=== PATIENT | female | born 1940 | race Caucasian/White ===

== ENCOUNTER 2023-09-11 23:32 | Observation (INO) | payer MEDICARE, BC, SELFPAY ==
[2023-09-11 23:40] VITALS: BP 145/63; PULSE 77; RESP 16; TEMP 36.6; O2SAT 97; BMI 24.8
--- NOTE | 2023-09-12 00:10 | ED_ITS ---
HPI - General Adult General Chief complaint: Abdominal Pain Stated complaint: abdominal pain Time Seen by Provider: 09/11/23 23:50 Source: patient and family Mode of arrival: ambulatory Limitations: no limitations History of Present Illness HPI narrative: Female presents to the emergency department for evaluation of abdominal pain. Pain is located in the periumbilical and epigastric region it started about 2 hours prior to arrival. No fever, no trauma or injury. No prior history of similar symptoms. Pain is constant. Sharp in nature. Does not seem to radiate. Not associated with nausea, diarrhea. She is also having some urinary hesitancy and urgency. No dysuria or hematuria. No bloody stools. Has not tried taking any medications or any other interventions to help with her symptoms. Has not noticed any exacerbating factors. No prior history of kidney stones or abdominal surgeries. No prior obstructions. No heavy alcohol use, no history of pancreatitis. No heartburn like symptoms or right upper quadrant tenderness. Past medical history notable for COPD, hypertension. Home meds are trazodone, amlodipine, losartan, hydrochlorothiazide, Singulair and fluticasone/albuterol inhaler. Daughters accompany her today. ROS is notable for the GI symptoms as above only, otherwise denies times 12 systems With the exception of some ongoing right shoulder arthritic issues. Related Data Home Medications Medication Instructions Recorded Confirmed albuterol sulfate 90 mcg/actuation inhalation 09/11/23 aerosol inhaler amlodipine 5 mg tablet 5 mg PO DAILY 09/11/23 09/11/23 fluticasone propionate 50 intranasal 09/11/23 mcg/actuation nasal spray,suspension hydrochlorothiazide 25 mg tablet mg PO 09/11/23 losartan 100 mg tablet 100 mg PO DAILY 09/11/23 09/11/23 montelukast 10 mg tablet 10 mg PO DAILY 09/11/23 09/11/23 rosuvastatin 10 mg tablet 10 mg PO QPM 09/11/23 09/11/23 trazodone 50 mg tablet mg PO 09/11/23 Allergies Allergy/AdvReac Type Severity Reaction Status Date / Time No Known Drug Allergies Allergy Verified 09/11/23 23:43 [facility] [place] Medical History Depression ?F32.A - Depression, unspecified (ICD-10) Prediabetes ?R73.03 - Prediabetes (ICD-10) COPD (chronic obstructive pulmonary disease) ?J44.9 - Chronic obstructive pulmonary disease, unspecified (ICD-10) HTN (hypertension) ?I10 - Essential (primary) hypertension (ICD-10) Surgical History H/O tubal ligation ?Z98.51 - Tubal ligation status (ICD-10) Hx of tonsillectomy ?Z90.89 - Acquired absence of other organs (ICD-10) S/P hip replacement ?Z96.649 - Presence of unspecified artificial hip joint (ICD-10) Social History How often do you have a drink containing alcohol: never AUDIT-C Alcohol total score: 0 Non-prescribed substance use: denies use Exam Const: Vital Signs, click to edit/add: Vital Signs - 24 hr 09/11/23 23:40 09/12/23 01:08 Temperature 97.8 F Pulse Rate [Pulse Oximeter] 77 79 Respiratory Rate 16 16 Blood Pressure [Le ft Upper Arm] 145/63 H 172/78 H Pulse Oximetry 97 98 Oxygen Delivery Me thod Room Air Documenting provider has reviewed patient's vital signs: yes Common normals: alert General appearance: well kempt Other: seems mildly distressed Due to pain but friendly and cooperative. HENMT: Common normals: normocephalic and moist oral mucous membranes Head and scalp: normocephalic Eye: Common normals: conjunctivae normal General eye: normal appearance of both eyes Conjunctiva: conjunctiva(e) normal Neck & C-Spine: Common normals: full ROM and no lymphadenopathy Resp: Common normals: normal respiratory effort, no use of accessory muscles and clear to auscultation bilaterally Effort & inspection: able to speak in complete sentences Auscultation: clear to auscultation bilaterally Cardio: Common normals: regular rate, regular rhythm, S1 normal heart sound, S2 normal heart sound and no murmurs Rate: regular rate Rhythm: regular rhythm Heart sounds: S1 normal and S2 normal GI: Other: Ventral hernia noted, she does not let me examine this well. Bowel sounds do sound normoactive throughout. She is exquisitely tender in the epigastrium and mid abdomen area. Less so any other areas. Certainly no rebound tenderness but there is a moderate amount of guarding in the mid abdomen. Other than what appears to be a ventral hernia, no other obvious masses. She really does resist exam which makes interpretation difficult. Liver and spleen do not seem enlarged. : Common normals: no CVA tenderness Bladder/kidney exam: no CVA tenderness Back & Pelvis: Common normals: no CVA tenderness Thoracic spine/upper back: normal to inspection Extremity: Common normals: normal capillary refill and no pedal edema Neuro: Sensorium/orientation: alert Speech: speech normal Motor exam: no movement abnormalities noted Psych: Appearance: well kempt Attitude: engaged Insight: insight good Judgement: judgment good Skin: Common normals: no rashes or lesions noted General skin exam: no rashes or lesions noted Course Course ED Course: Mid abdominal pain of insidious onset. Concerning for ischemic bowel, incarcerated hernia, volvulus, kidney stone. Other differential diagnosis includes gastroenteritis, bleeding ulcer, urinary tract infection, colitis, bowel obstruction, ovarian torsion, among others. Patient requesting pain medicine, will be given Quarter mg of Dilaudid, 4 mg of Zofran and start some lactated Ringer's. Basic labs including lipase, CRP, metabolic panel, CBC etc.. based on urinalysis and labs, would then recommend CT either with or without contrast. Suspect with contrast. Reevaluation(s) Time of Reevaluation #1: 01:40 Reevaluation #1: Patient was given other 0.5 mg of Dilaudid about 5 minutes ago after we discussed CT findings and lab findings. I will add a medicine to become therapeutic and then performed reduction. Procedure: Incarcerated hernia reduction. Verbal consent obtained. Mid abdomen was massaged gently to let the patient get use to touch chin to soften the abdominal muscles. Once I was sure that her pain medication had become therapeutic, gentle downward pressure was applied over the supraumbilical area of swelling. The hernia reduced easily. Pressure was held for about 1 minute and then released. She had quite a bit of relief of her pain right away. Repeat examination 2 minutes later showed no further evidence of hernia. I spoke with kevin Chapa from the surgical team. I am recommending observation admission. She will consult on patient later this morning, will admit to the hospitalist team. Time of Reevaluation #2: 01:57 Reevaluation #2: Spoke with hospitalist on-call they have accepted patient in admission for observation. Diagnosis small-bowel obstruction secondary to incarcerated supra umbilical hernia, status post uncomplicated reduction. Vital Signs Vital signs: Initial Vital Signs Temperature 97.8 F 09/11/23 23:40 Temperature Source Temporal Artery Scan 09/11/23 23:40 Pulse Rate 77 09/11/23 23:40 Respiratory Rate 16 09/11/23 23:40 Blood Pressure 145/63 H 09/11/23 23:40 Blood Pressure Mean 90 09/11/23 23:40 Blood Pressure Position Sitting 09/11/23 23:40 Pulse Oximetry 97 09/11/23 23:40 Oxygen Delivery Method Room Air 09/11/23 23:40 Vital Signs Temperature 97.8 F 09/11/23 23:40 Pulse Rate 77 09/11/23 23:40 Respiratory Rate 16 09/11/23 23:40 Blood Pressure 145/63 H 09/11/23 23:40 Pulse Oximetry 97 09/11/23 23:40 Oxygen Delivery Method Room Air 09/11/23 23:40 Temperature 97.8 F 09/11/23 23:40 Pulse Rate 79 09/12/23 01:08 Respiratory Rate 16 09/12/23 01:08 Blood Pressure 172/78 H 09/12/23 01:08 Pulse Oximetry 98 09/12/23 01:08 Oxygen Delivery Method Room Air 09/11/23 23:40 Medications Administered Medications: Generic Name Dose Route Start Last Admin Trade Name Freq PRN Reason Stop Dose Admin Lactated Ringer's 1,000 mls @ 500 mls/hr 09/12/23 00:07 09/12/23 00:13 Lactated Ringers 1000 Ml IV 09/12/23 02:06 500 mls/hr .Q2H BARBARA Administration Discontinued Medications Generic Name Dose Route Start Last Admin Trade Name Freq PRN Reason Stop Dose Admin Hydromorphone HCl 0.25 mg 09/12/23 00:06 09/12/23 00:15 Hydromorphone 0.5 Mg/0.5 Ml Inj IVP 09/12/23 00:07 0.25 mg ONCE ONE Administration Hydromorphone HCl 0.5 mg 09/12/23 01:27 09/12/23 01:28 Hydromorphone 0.5 Mg/0.5 Ml Inj IVP 09/12/23 01:28 0.5 mg ONCE ONE Administration Ondansetron HCl 4 mg 09/12/23 00:06 09/12/23 00:15 Ondansetron 2 Mg/Ml Inj IVP 09/12/23 00:07 4 mg ONCE ONE Administration Medical Decision Making Lab Data Lab results reviewed: Yes I reviewed the patient's lab results Lab results narrative: Labs reassuring. Labs: Lab Results 09/12/23 09/12/23 Range/Units 00:00 00:47 WBC 5.90 (4.50-11.00) K/uL RBC 4.01 (4.00-5.20) m/uL Hgb 12.8 (12.0-16.0) gm/dL Hct 39.7 (33.0-51.0) % MCV 99 (80-100) fL MCH 32 (26-34) pg MCHC 32 (32-36) gm/dL RDW Coeff of Ti 13.1 (11.5-15.5) % Plt Count 294 (140-440) K/uL Neut % (Auto) 51.0 (42.0-72.0) % Lymph % (Auto) 30.8 (20-44) % [place] % (Auto) 9.2 (0.0-11.0) % Eos % (Auto) 8.1 H (0.0-7.0) % Baso % (Auto) 0.7 (0.0-3.0) % Neut # (Auto) 3.01 (1.7-7.0) K/uL Lymph # (Auto) 1.82 (0.90-2.90) K/uL [place] # (Auto) 0.50 (0.00-0.90) K/UL Eos # (Auto) 0.50 (0.00-0.50) K/uL Baso # (Auto) 0.04 (0.00-0.30) K/uL Abs Immat Gran (auto) 0.01 (0.00-0.30) K/uL Imm/Tot Granulo (auto) 0.2 % Sodium 141 (135-149) mmol/L Potassium 3.8 (3.6-5.1) mmol/L Chloride 104 (96-114) mmol/L Carbon Dioxide 28 (20-32) mmol/L Anion Gap 9 (7-15) mEq/L BUN 22 (7-30) mg/dL Creatinine 0.8 (0.5-1.5) mg/dL Estimated Creat Clear 35.26 Estimated GFR 73 ml/min Glucose 116 H (60-115) mg/dL Lactate 0.9 (0.5-1.9) mmol/L Calcium 9.8 (8.4-10.6) mg/dL Total Bilirubin 0.4 (0.1-1.5) mg/dL AST 23 (12-35) U/L ALT 12 (4-35) U/L Alkaline Phosphatase 81 (40-150) U/L C-Reactive Protein < 0.5 L (0.5-1.0) mg/dL Total Protein 8.1 (6.0-8.3) g/dL Albumin 4.8 (3.3-5.0) g/dL Lipase 198 (23-300) U/L Urine Color Yellow (Yellow) Urine Appearance Clear (Clear) Urine pH 6.5 (5.0-8.5) Ur Specific [place] 1.020 (1.000-1.030) Urine Protein Negative (Negative) Urine Glucose (UA) Negative (Negative) Urine Ketones Negative (Negative) Urine Blood Trace-lysed A (Negative) Urine Nitrite Negative (Negative) Urine Bilirubin Negative (Negative) Urine Urobilinogen 0.2 (0.2-1.0) Ur Leukocyte Esterase Negative (Negative) Urine RBC 0-2 (0-2) Urine WBC 0-2 (0-5) Ur Squamous Epith Cells Few (None-Few) Urine Bacteria None (None) Imaging Data CT scan - abdomen: Attestation: I have reviewed the pertinent imaging results. My impression: Ventral hernia. Bowel incarceration Radiologist's impression: Impression: 1. There is a supraumbilical hernia containing a short segment of small bowel with the hernia sac contents demonstrating fat stranding and small volume fluid. The proximal small bowel is prominent with air-fluid levels. Findings are concerning for early or partial small bowel obstruction secondary to hernia incarceration. 2. Question fluid in the endometrial canal. Recommend nonemergent outpatient pelvic ultrasound for further evaluation. Discharge Plan Discharge Clinical Impression: Complete small bowel obstruction, Incarcerated ventral hernia Patient Disposition: Admitted As Observation
[2023-09-12] MEDS: LACTATED RINGERS 1000 ML 1,000 ML 500 ML IV (00:13)
[2023-09-12 00:15] LABS: Lactate* 0.9 mmol/L (0.5-1.9)
[2023-09-12] MEDS: HYDROmorphone 0.5 mg/0.5 ml inj 0.25 MG IVP (00:15)
[2023-09-12] MEDS: ONDANSETRON 2 MG/ML inj 4 MG IVP (00:15)
[2023-09-12 00:17] LABS: Basophils Absolute Auto 0.04 K/uL (0.00-0.30); Basophils Percent Auto 0.7 % (0.0-3.0); Eosinophils Percent Auto 8.1 % (0.0-7.0); Hematocrit 39.7 % (33.0-51.0); Hemoglobin* 12.8 gm/dL (12.0-16.0); Immature Granulocytes Abs Auto 0.01 K/uL (0.00-0.30); Immature Granulocytes Pct Auto 0.2 %; Lymphocytes Absolute Auto 1.82 K/uL (0.90-2.90); Lymphocytes Percent Auto 30.8 % (20-44); Mean Corpuscular HGB Conc 32 gm/dL (32-36); Mean Corpuscular Hemoglobin 32 pg (26-34); Mean Corpuscular Volume 99 fL (80-100); Monocytes Percent Auto 9.2 % (0.0-11.0); Neutrophils Absolute Auto 3.01 K/uL (1.7-7.0); Platelet Count* 294 K/uL (140-440); RDW Coefficient of Variation % 13.1 % (11.5-15.5); Red Blood Count 4.01 m/uL (4.00-5.20)
--- NOTE | 2023-09-12 00:17 | CT_ITS ---
Patient: DIRK FLORES Facility:?[facility] Patient ID:?[id number] Site Patient ID:?[id number]. Site :?[id number] Study:?CT-Abdomen/Pelvis with 69cc [id number] contrast-09/12/2023 1:13:56 AM Ordering Physician:Tj Cade Final Report: Indication: Sudden abdominal pain, anterior Technique: CT through the abdomen and pelvis following 69 mL Isovue 370 IV contrast Comparison: None Findings: Lower chest: Mild bibasilar atelectasis and/or scarring. Hepatobiliary: No significant parenchymal abnormality is appreciated. Spleen: Unremarkable. Pancreas: No acute abnormality appreciated. Adrenal glands: No acute abnormality appreciated. Kidneys: No significant parenchymal abnormality appreciated. No visualized calculi. No hydronephrosis. Bowel: No overt obstruction. There is slight prominence of multiple loops of small bowel measuring up to 2.3 centimeters containing moderate volume of air. No focal perienteric or pericolonic stranding is appreciated. The appendix is visualized and appears unremarkable. Vascular: No acute abnormality appreciated. Calcified atherosclerosis. Lymph nodes: No gross lymphadenopathy. Peritoneum: No free air. No free fluid. : Largely obscured by streak artifact, no gross acute abnormality appreciated. Question endometrial fluid. Soft tissues: There is a supraumbilical hernia with a 1.0 centimeter neck containing a loop of small bowel. There is slight stranding and fluid within the hernia sac. Bones: No acute fracture. No lytic or blastic lesion. Degenerative changes of the spine and pelvis. Bilateral hip replacements. Impression: 1. There is a supraumbilical hernia containing a short segment of small bowel with the hernia sac contents demonstrating fat stranding and small volume fluid. The proximal small bowel is prominent with air-fluid levels. Findings are concerning for early or partial small bowel obstruction secondary to hernia incarceration. 2. Question fluid in the endometrial canal. Recommend nonemergent outpatient pelvic ultrasound for further evaluation. Please note that all CT scans at this facility use dose modulation, iterative reconstruction, and/or weight-based dosing when appropriate to reduce radiation dose to as low as reasonably achievable. Dictated by Manpreet Knight MD @ 09/12/2023 1:18:57 AM Signed by:?Manpreet Knight MD @09/12/2023 1:18:57 AM (Electronic Signature)
[2023-09-12 00:19] LABS: Slide Review Reflex No
[2023-09-12 00:28] LABS: Albumin* 4.8 g/dL (3.3-5.0); Chloride* 104 mmol/L (96-114); Potassium* 3.8 mmol/L (3.6-5.1); Sodium* 141 mmol/L (135-149)
[2023-09-12 00:30] LABS: Bilirubin Total* 0.4 mg/dL (0.1-1.5); Creatinine* 0.8 mg/dL (0.5-1.5); Est. Creatinine Clearance* 35.26; Estimated Glomerular Filt Rate 73 ml/min
[2023-09-12 00:31] LABS: Alanine Aminotransferase* 12 U/L (4-35); Alkaline Phosphatase* 81 U/L (40-150); Anion Gap 9 mEq/L (7-15); Aspartate Amino Transferase* 23 U/L (12-35); Blood Urea Nitrogen* 22 mg/dL (7-30); Carbon Dioxide* 28 mmol/L (20-32); Glucose* 116 mg/dL (60-115); Lipase* 198 U/L (23-300); Total Protein* 8.1 g/dL (6.0-8.3)
[2023-09-12 00:32] VITALS: BP 153/78; PULSE 72; RESP 16; O2SAT 96
[2023-09-12 00:32] LABS: Calcium* 9.8 mg/dL (8.4-10.6)
[2023-09-12 00:34] LABS: C Reactive Protein* < 0.5 mg/dL (0.5-1.0)
[2023-09-12 00:50] LABS: Appearance Urine Clear (Clear); Bilirubin Urine Negative (Negative); Blood Urine Trace-lysed (Negative); Color Urine Yellow (Yellow); Glucose Urine Negative (Negative); Ketones Urine Negative (Negative); Leukocyte Esterase Urine Negative (Negative); Nitrite Urine Negative (Negative); Protein Urine Negative (Negative); Urobilinogen Urine 0.2 (0.2-1.0); pH Urine 6.5 (5.0-8.5)
[2023-09-12 01:01] LABS: RBC Urine 0-2 (0-2); Squamous Epithelial Cell Urine Few (None-Few); WBC Urine 0-2 (0-5)
[2023-09-12 01:04] VITALS: BP 172/78; PULSE 84; RESP 16; O2SAT 98
[2023-09-12 01:08] VITALS: BP 172/78; PULSE 79; RESP 16; O2SAT 98
[2023-09-12] MEDS: HYDROmorphone 0.5 mg/0.5 ml inj IVP (01:28)
[2023-09-12 01:32] VITALS: BP 154/74; PULSE 78; RESP 16; O2SAT 94
[2023-09-12 02:02] VITALS: BP 140/70; PULSE 74; RESP 16; O2SAT 95
[2023-09-12 02:45] VITALS: BP 153/87; PULSE 88; RESP 20; TEMP 36.4; O2SAT 96; BMI 26.9
--- NOTE | 2023-09-12 03:12 | W.PM.TELEH&P ---
Telehealth- H&P: HPI History of Present Illness Date Seen: 09/12/23 Chief complaint: abdominal pain Narrative: Viky Siu is seen as an Interactive Telehealth visit. Viky Siu is a 83 year old male who is seen in her hospital room at [facility]. She has been admitted through the emergency room. She tells me this evening she had a sudden onset of severe supraumbilical abdominal pain. It was to the point she could not do anything she called her daughters and was brought into the emergency room. She tells me she has had similar pain to this on and off over the last couple of months. But this was the worst. No fevers no chills no nausea no vomiting. But the pain was quite intense she was evaluated in the emergency room she was found to have an incarcerated hernia on CT scan with what appears to be bowel obstruction. This was reduced after pain medications by the emergency room physician. Viky tells me that her abdominal pain does not seem to be significantly better but is not completely resolved. She does have a cough but tells me this is not new and has not changed. Otherwise she does not have any other complaints of. Review of Systems Narrative: A complete review of systems was performed positive pertinent and negatives in the history of present illness. [facility] Medical History Depression ?F32.A - Depression, unspecified (ICD-10) Prediabetes ?R73.03 - Prediabetes (ICD-10) COPD (chronic obstructive pulmonary disease) ?J44.9 - Chronic obstructive pulmonary disease, unspecified (ICD-10) HTN (hypertension) ?I10 - Essential (primary) hypertension (ICD-10) Surgical History H/O tubal ligation ?Z98.51 - Tubal ligation status (ICD-10) Hx of tonsillectomy ?Z90.89 - Acquired absence of other organs (ICD-10) S/P hip replacement ?Z96.649 - Presence of unspecified artificial hip joint (ICD-10) Social History How often do you have a drink containing alcohol: never AUDIT-C Alcohol total score: 0 Non-prescribed substance use: denies use Meds Home Medications and Allergies Home Medications Medication Instructions Recorded Confirmed Type albuterol sulfate 90 mcg/actuation inhalation 09/11/23 History aerosol inhaler amlodipine 5 mg tablet 5 mg PO DAILY 09/11/23 09/11/23 History fluticasone propionate 50 intranasal 09/11/23 History mcg/actuation nasal spray,suspension hydrochlorothiazide 25 mg tablet mg PO 09/11/23 History losartan 100 mg tablet 100 mg PO DAILY 09/11/23 09/11/23 History montelukast 10 mg tablet 10 mg PO DAILY 09/11/23 09/11/23 History rosuvastatin 10 mg tablet 10 mg PO QPM 09/11/23 09/11/23 History trazodone 50 mg tablet mg PO 09/11/23 History Allergies Allergy/AdvReac Type Severity Reaction Status Date / Time No Known Drug Allergies Allergy Verified 09/11/23 23:43 Exam Narrative Exam Narrative: Physical Exam GENERAL: ?vital signs reviewed, well developed and nourished, in no distress HEENT: pupils are equal round and reactive to light, extraocular movements are grossly within normal limits and oral mucosa is moist. NECK: Supple without lymphadenopathy or thyromegaly according to nursing staff examination observation HEART: Regular rate and rhythm without any rubs, murmurs, or gallops. LUNGS: Clear to auscultation bilaterally with good air movement throughout patient does have expiratory wheezes throughout her lungs ABDOMEN: Observation from nurse assisted exam, abdomen appears soft, n Mildly tender in the supraumbilical region, and nondistended with Positive bowel sounds noted. EXTREMITIES: Strength and sensation is observed to be grossly within normal limits in the upper and lower extremities.? No focal strength deficit is observed. SKIN:? Observed warm and dry with color normal Const Vital Signs, click to edit/add: Vital Signs - 24 hr 09/11/23 23:40 09/12/23 00:32 09/12/23 01:04 Temperature 97.8 F Pulse Rate 72 84 Pulse Rate [Pulse Oximeter] 77 Respiratory Rate 16 16 16 Blood Pressure 153/78 H 172/78 H Blood Pressure [Left Upper Arm] 145/63 H Pulse Oximetry 97 96 98 Oxygen Delivery Method Room Air 09/12/23 01:08 09/12/23 01:32 09/12/23 02:02 Temperature Pulse Rate 78 74 Pulse Rate [Pulse Oximeter] 79 Respiratory Rate 16 16 16 Blood Pressure 154/74 H 140/70 H Blood Pressure [Left Upper Arm] 172/78 H Pulse Oximetry 98 94 95 Oxygen Delivery Method Hospitalist - H&P: Result Labs Labs: Short CBC 09/12/23 Range/Units 00:00 WBC 5.90 (4.50-11.00) K/uL Hgb 12.8 (12.0-16.0) gm/dL Hct 39.7 (33.0-51.0) % Plt Count 294 (140-440) K/uL BMP 09/12/23 00:00 Sodium 141 Potassium 3.8 Chloride 104 Carbon Dioxide 28 BUN 22 Creatinine 0.8 Glucose 116 H Calcium 9.8 Liver Function 09/12/23 Range/Units 00:00 Total Bilirubin 0.4 (0.1-1.5) mg/dL AST 23 (12-35) U/L ALT 12 (4-35) U/L Alkaline Phosphatase 81 (40-150) U/L Albumin 4.8 (3.3-5.0) g/dL Urine 09/12/23 Range/Units 00:47 Urine Color Yellow (Yellow) Urine Appearance Clear (Clear) Urine pH 6.5 (5.0-8.5) Ur Specific [place] 1.020 (1.000-1.030) Urine Protein Negative (Negative) Urine Glucose (UA) Negative (Negative) Imaging CT scan - abdomen: Radiologist's impression: CT scans appears to show an incarcerated supraumbilical hernia with possible bowel obstruction per my interpretation Assessment and Plan Assessment and plan (1) Incarcerated ventral hernia: Status: Acute (2) Complete small bowel obstruction: Status: Acute Plan incarcerated ventral hernia?at this point appears to be reduced pain appears to be improving. Recheck CBC, Chem-8, lactic acid in the morning. This seems to have been going on for a couple of months will place consult with general surgery. She ultimately may need this repaired. As long as she continues to improve this evening will not get excited. If patient has recurrence or increasing pain will need to be in contact with general surgery earlier. Will have some low-dose narcotics available if needed. Will continue to watch her closely. Small bowel obstruction thought to be secondary to ventral hernia appears to be improving we will keep her n.p.o. tonight. Diet can be advanced in the morning. DVT prophylaxis subcutaneous Lovenox can be started if she remains hospitalized more than 48 hours. CODE STATUS was discussed on admission she wishes to be a DNR/DNI. Telehealth: Statement Statement Telehealth Visit: Today's History and Physical is provided via interactive telehealth by Favian Vincent DO.? Patient is located at [facility].? Provider is located at [facility].? Nursing staff assisted with the patient's exam. The visit being done today meets criteria for a telehealth visit and the patient or patient?s parent/guardian is aware the visit is a telehealth visit. Camera Start Time: 02:56 Camera End Time: 03:13
[2023-09-12] MEDS: ALBUTEROL SULFATE 2.5 MG/3 ML VIAL.NEB NEB (07:43)
[2023-09-12 08:48] LABS: Lactate* 0.9 mmol/L (0.5-1.9)
[2023-09-12 08:55] LABS: Basophils Absolute Auto 0.03 K/uL (0.00-0.30); Basophils Percent Auto 0.5 % (0.0-3.0); Eosinophils Absolute Auto 0.39 K/uL (0.00-0.50); Eosinophils Percent Auto 6.2 % (0.0-7.0); Hematocrit 34.6 % (33.0-51.0); Hemoglobin* 11.1 gm/dL (12.0-16.0); Lymphocytes Absolute Auto 1.87 K/uL (0.90-2.90); Lymphocytes Percent Auto 29.7 % (20-44); Mean Corpuscular HGB Conc 32 gm/dL (32-36); Mean Corpuscular Hemoglobin 32 pg (26-34); Mean Corpuscular Volume 100 fL (80-100); Monocytes Percent Auto 7.3 % (0.0-11.0); Neutrophils Absolute Auto 3.54 K/uL (1.7-7.0); Neutrophils Percent Auto 56.3 % (42.0-72.0); Platelet Count* 238 K/uL (140-440); RDW Coefficient of Variation % 13.1 % (11.5-15.5); Red Blood Count 3.47 m/uL (4.00-5.20); White Blood Count* 6.29 K/uL (4.50-11.00)
[2023-09-12 08:59] LABS: Slide Review Reflex No
[2023-09-12 09:05] LABS: Chloride* 107 mmol/L (96-114)
[2023-09-12 09:06] LABS: Potassium* 3.5 mmol/L (3.6-5.1); Sodium* 139 mmol/L (135-149)
[2023-09-12 09:08] LABS: Creatinine* 0.7 mg/dL (0.5-1.5); Est. Creatinine Clearance* 33.71; Estimated Glomerular Filt Rate 86 ml/min
[2023-09-12 09:09] LABS: Anion Gap 5 mEq/L (7-15); Blood Urea Nitrogen* 15 mg/dL (7-30); Calcium* 8.9 mg/dL (8.4-10.6); Carbon Dioxide* 27 mmol/L (20-32); Glucose* 100 mg/dL (60-115)
[2023-09-12] MEDS: ACETAMINOPHEN 325 MG TABLET PO (10:20)
--- NOTE | 2023-09-12 11:19 | P.GSCN_ITS ---
History of Present Illness Consult details Date Seen: 09/12/23 Consult date: 09/12/23 Narrative: 83-year-old female with history of COPD presented to emergency room with supra umbilical abdominal pain. The pain started all of a sudden at 9:30 p.m.. The pain was severe and was not resolving. Patient denies any nausea or vomiting. She was seen in the emergency room. Her workup in the emergency room was personally reviewed by me. She was found to have normal WBC. An abdominal CT was obtained that showed an incarcerated supraumbilical hernia containing small intestine. This hernia was reduced in the emergency room and patient was admitted to the hospital for observation. Patient states that her pain is significantly better. She denies nausea or vomiting. She has been passing gas. She noticed a bulge above her umbilicus but she was not sure what that was. She has never had other episodes of incarceration. Review of Systems Narrative: General: no fevers HENT: no problems swallowing CV: Increased coughing recently. No chest pain GI: See above Skin: no new rashes Neuro: no muscle weakness PFSH PFSH Medical History (Updated 09/12/23 @ 01:59 by Chacha Verduzco MD) Depression ?F32.A - Depression, unspecified (ICD-10) Prediabetes ?R73.03 - Prediabetes (ICD-10) COPD (chronic obstructive pulmonary disease) ?J44.9 - Chronic obstructive pulmonary disease, unspecified (ICD-10) HTN (hypertension) ?I10 - Essential (primary) hypertension (ICD-10) Surgical History (Updated 09/12/23 @ 11:23 by Margoth Bagley MD) History of knee replacement ?Z96.659 - Presence of unspecified artificial knee joint (ICD-10) H/O tubal ligation ?Z98.51 - Tubal ligation status (ICD-10) Hx of tonsillectomy ?Z90.89 - Acquired absence of other organs (ICD-10) S/P hip replacement ?Z96.649 - Presence of unspecified artificial hip joint (ICD-10) Social History What is your current living situation?: I presently have a place to live Problems where you live: no known problems Problems where you live details: N/A In the past 12 months, utilities in danger of being shut off: no In past 12 months, lack of transportation kept you from medical appts, meetings, work, or getting things needed for daily living: no In the past 12 mos, have been you worried that your food would run out before you had money to buy more?: never true In the past 12 mos, the food you bought just didn't last and you didn't have money to buy more?: never true Highest level of school completed/degree received: Associate degree: occupational, technical, vocational program Smoking Status: Former smoker What tobacco products do you use: cigarettes Smoking packs per day: 1 Smoking cigarettes per day: 20.0 Years smoked: 40 Smoking pack-years: 40.00 Smoking quit date/years: >15 years ago Do you use any of these nicotine containing products: None Second hand tobacco smoke exposure: No How often do you have a drink containing alcohol: monthly or less Alcohol type: wine How many standard drinks containing alcohol do you have on a typical day: 1 or 2 How often do you have six or more drinks on one occasion: Never AUDIT-C Alcohol total score: 1 Non-prescribed substance use: denies use Caffeine: Yes How often does anyone, including family, friends and others, physically hurt you : never How often does anyone, including family, friends and others, insult or talk down to you: never How often does anyone, including family, friends and others, threaten you with harm: never How often does anyone, including family, friends and others, scream or curse at you: never service: No Meds Home Medications and Allergies Home Medications Medication Instructions Recorded Confirmed Type albuterol sulfate 90 mcg/actuation 2 puff inhalation Q6H PRN 09/11/23 09/12/23 History aerosol inhaler amlodipine 5 mg tablet 5 mg PO DAILY 09/11/23 09/11/23 History fluticasone propionate 50 2 spray intranasal DAILY 09/11/23 09/12/23 History mcg/actuation nasal spray,suspension hydrochlorothiazide 25 mg tablet 25 mg PO DAILY 09/11/23 09/12/23 History losartan 100 mg tablet 100 mg PO DAILY 09/11/23 09/11/23 History montelukast 10 mg tablet 10 mg PO HS 09/11/23 09/12/23 History rosuvastatin 10 mg tablet 10 mg PO HS 09/11/23 09/12/23 History trazodone 50 mg tablet 50 mg PO HS 09/11/23 09/12/23 History acetaminophen 500 mg tablet 1,000 mg PO TID 09/12/23 09/12/23 History (Acetaminophen Extra Strength) alendronate 70 mg tablet 70 mg PO Q7D 09/12/23 09/12/23 History budesonide 0.5 mg/2 mL suspension 0.5 mg inhalation BID 09/12/23 09/12/23 History for nebulization carboxymethylcellulose sodium 0.5 1 drp ophthalmic (eye) BID PRN 09/12/23 09/12/23 History % eye drops (Refresh Tears) ipratropium 0.5 mg-albuterol 3 mg 3 ml inhalation BID-TID wheezing 09/12/23 09/12/23 History (2.5 mg base)/3 mL nebulization soln Allergies Allergy/AdvReac Type Severity Reaction Status Date / Time No Known Drug Allergies Allergy Verified 09/11/23 23:43 Exam Narrative: Exam Narrative: General appearance: Alert, cooperative, and in no distress Pulmonary: Chest symmetric, lungs clear bilaterally Cardiovascular Heart: Regular rate and rhythm, S1, S2, no murmurs/rubs/gallops Gastrointestinal Abdominal: soft, not distended, tender to palpation supraumbilically with no supraumbilical bulge palpated, no peritoneal signs. Skin: Normal skin color, texture, and turgor. No rashes or lesions. Psychiatric: Alert, cooperative, normal affect. Const: Vital Signs, click to edit/add: Vital Signs - 24 hr 09/11/23 23:40 09/12/23 00:32 09/12/23 01:04 Temperature 97.8 F Pulse Rate 72 84 Pulse Rate [Pulse Oximeter] 77 Respiratory Rate 16 16 16 Blood Pressure 153/78 H 172/78 H Blood Pressure [Le ft Arm] Blood Pressure [Le ft Upper Arm] 145/63 H Pulse Oximetry 97 96 98 Oxygen Delivery Me thod Room Air 09/12/23 01:08 09/12/23 01:32 09/12/23 02:02 Temperature Pulse Rate 78 74 Pulse Rate [Pulse Oximeter] 79 Respiratory Rate 16 16 16 Blood Pressure 154/74 H 140/70 H Blood Pressure [Le ft Arm] Blood Pressure [Le ft Upper Arm] 172/78 H Pulse Oximetry 98 94 95 Oxygen Delivery Me thod 09/12/23 02:45 09/12/23 02:45 Temperature 97.6 F Pulse Rate Pulse Rate [Pulse Oximeter] 88 Respiratory Rate 20 20 Blood Pressure Blood Pressure [Le ft Arm] 153/87 H Blood Pressure [Le ft Upper Arm] Pulse Oximetry 96 96 Oxygen Delivery Me thod Room Air Room Air Results Labs Labs: Abnormal lab results 09/12/23 09/12/23 09/12/23 Range/Units 00:00 00:47 08:42 RBC 3.47 L (4.00-5.20) m/uL Hgb 11.1 L (12.0-16.0) gm/dL Eos % (Auto) 8.1 H (0.0-7.0) % Potassium 3.5 L (3.6-5.1) mmol/L Anion Gap 5 L (7-15) mEq/L Glucose 116 H (60-115) mg/dL C-Reactive Protein < 0.5 L (0.5-1.0) mg/dL Urine Blood Trace-lysed A (Negative) Diabetes panel 09/12/23 09/12/23 Range/Units 00:00 08:42 Sodium 141 139 (135-149) mmol/L Potassium 3.8 3.5 L (3.6-5.1) mmol/L Chloride 104 107 (96-114) mmol/L Carbon Dioxide 28 27 (20-32) mmol/L BUN 22 15 (7-30) mg/dL Creatinine 0.8 0.7 (0.5-1.5) mg/dL Glucose 116 H 100 (60-115) mg/dL Calcium 9.8 8.9 (8.4-10.6) mg/dL AST 23 (12-35) U/L ALT 12 (4-35) U/L Alkaline Phosphatase 81 (40-150) U/L Total Protein 8.1 (6.0-8.3) g/dL Albumin 4.8 (3.3-5.0) g/dL Calcium panel 09/12/23 09/12/23 Range/Units 00:00 08:42 Calcium 9.8 8.9 (8.4-10.6) mg/dL Albumin 4.8 (3.3-5.0) g/dL Pituitary panel 09/12/23 09/12/23 Range/Units 00:00 08:42 Sodium 141 139 (135-149) mmol/L Potassium 3.8 3.5 L (3.6-5.1) mmol/L Chloride 104 107 (96-114) mmol/L Carbon Dioxide 28 27 (20-32) mmol/L BUN 22 15 (7-30) mg/dL Creatinine 0.8 0.7 (0.5-1.5) mg/dL Glucose 116 H 100 (60-115) mg/dL Calcium 9.8 8.9 (8.4-10.6) mg/dL Adrenal panel 09/12/23 09/12/23 Range/Units 00:00 08:42 Sodium 141 139 (135-149) mmol/L Potassium 3.8 3.5 L (3.6-5.1) mmol/L Chloride 104 107 (96-114) mmol/L Carbon Dioxide 28 27 (20-32) mmol/L BUN 22 15 (7-30) mg/dL Creatinine 0.8 0.7 (0.5-1.5) mg/dL Glucose 116 H 100 (60-115) mg/dL Calcium 9.8 8.9 (8.4-10.6) mg/dL Total Bilirubin 0.4 (0.1-1.5) mg/dL AST 23 (12-35) U/L ALT 12 (4-35) U/L Alkaline Phosphatase 81 (40-150) U/L Total Protein 8.1 (6.0-8.3) g/dL Albumin 4.8 (3.3-5.0) g/dL All other labs normal. Progress Note:A&P Assessment and plan (1) Incarcerated ventral hernia: Status: Acute Assessment and Plan: 83-year-old female presented with incarcerated supraumbilical/ventral hernia s/p reduction in the emergency room. I discussed with the patient and her daughter the etiology of hernias and their natural progression. Given patient's episode of incarceration, I recommended to proceed with ventral hernia repair as outpatient. Patient has been coughing a lot during our consultation and I suspect that she may have COPD exacerbation. I discussed with the hospitalist to see if she needs a burst of steroids. Arielle nt has been on chronic steroids up until 6 months ago when those were weaned off. Patient should see her primary care doctor next week to see if her COPD exacerbation is improving and if she would be cleared for surgery. If cleared for surgery, we would do the surgery under MAC anesthesia in same-day surgery. The procedure was discussed with the patient in detail. The risks associated procedure including infection, bleeding, injury to intra-abdominal organs, and hernia recurrence were all discussed with the patient. (2) History of knee replacement: Status: Inactive
[2023-09-12] MEDS: BUDESONIDE 0.5 MG/2ML NEB NEB (11:22)
[2023-09-12] MEDS: hydroCHLOROthiazide 25 MG TABLET PO (11:22)
[2023-09-12] MEDS: LOSARTAN POTASSIUM 50 MG TABLET 100 MG PO (11:22)
--- NOTE | 2023-09-12 12:04 | P.DS_ITS ---
DS: Providers Provider Date Seen: 09/12/23 Date of admission: 09/12/23 02:31 Primary care physician: Ирина Curry MD Admitting Clinician: Favian Vincent DO Consults: 09/12/23 03:18 Consult to Physician [CONS] Routine Comment: Consulting Provider: Margoth Bagley Has provider been notified: No Attending Physician on discharge: Favian Vincent DO DS: Diagnosis Discharge Diagnosis (1) Incarcerated ventral hernia: Status: Acute Problem details: Reduced in the ED. Morning of admission, pain significantly improved. General surgery consulted. Recommending outpatient follow-up with PCP, preoperative evaluation, for surgical management. (2) Small bowel obstruction: Status: Acute Problem details: Morning of admission, passing gas, minimal pain, no nausea or vomiting. Tolerating oral diet. Okay for discharge to home per discussion with general surgeon. (3) HTN (hypertension): Status: Acute Problem details: Losartan, hydrochlorothiazide, amlodipine (4) COPD (chronic obstructive pulmonary disease): Status: Acute Problem details: Acute, mild exacerbation, without hypoxia Home management includes inhalers, nebulizers, montelukast. Had been without budesonide for several weeks with increasing symptoms over the past 7-10 days. Started on prednisone for short 5 day course. Will continue with all of her home medications. Outpatient follow-up with PCP this week for re-evaluation, preoperative evaluation and clearance for surgery. DS: Summary Hospital Course Hospital Course: [age] year old female past medical history significant for hypertension, hyperlipidemia, COPD was admitted to the medical floor for management of small- bowel obstruction in setting of incarcerated ventral hernia. Course of care and details as noted above. Hernia was reduced in the ED, significantly improving pain. Patient was passing gas and tolerating diet several hours thereafter. Evaluated by General surgery, recommending surgical intervention in the outpatient setting. Remainder of chronic medical comorbidities were monitored and managed with home medications. Status at Discharge Overall status at discharge: patient is back to baseline Time Spent with Patient Time attestation: Total time spent providing and/or coordinating discharge services: Time spent: Greater than 30 minutes Exam Narrative: Exam Narrative: PHYSICAL EXAM General: Pleasant, conversant, NAD Cardiovascular: RRR, S1S2. No pitting edema Pulmonary: Mildly diminished without rhonchi, rales, expiratory wheezes. No tachypnea. No dyspnea on room air. Abdominal: Soft, nondistended, NTTP Neurological: Alert, answering questions appropriately, cranial nerves intact, no focal findings Extremities: No gross joint deformity or swelling. AROMI. Neurovascularly intact Skin: Warm, dry. Const: Vital Signs, click to edit/add: Vital Signs - 24 hr 09/11/23 23:40 09/12/23 00:32 09/12/23 01:04 Temperature 97.8 F Pulse Rate 72 84 Pulse Rate [Pulse Oximeter] 77 Respiratory Rate 16 16 16 Blood Pressure 153/78 H 172/78 H Blood Pressure [Le ft Arm] Blood Pressure [Le ft Upper Arm] 145/63 H Pulse Oximetry 97 96 98 Oxygen Delivery Me thod Room Air 09/12/23 01:08 09/12/23 01:32 09/12/23 02:02 Temperature Pulse Rate 78 74 Pulse Rate [Pulse Oximeter] 79 Respiratory Rate 16 16 16 Blood Pressure 154/74 H 140/70 H Blood Pressure [Le ft Arm] Blood Pressure [Le ft Upper Arm] 172/78 H Pulse Oximetry 98 94 95 Oxygen Delivery Me thod 09/12/23 02:45 09/12/23 02:45 Temperature 97.6 F Pulse Rate Pulse Rate [Pulse Oximeter] 88 Respiratory Rate 20 20 Blood Pressure Blood Pressure [Le ft Arm] 153/87 H Blood Pressure [Le ft Upper Arm] Pulse Oximetry 96 96 Oxygen Delivery Me thod Room Air Room Air DS: Data Data Completed and Pending Labs on day of discharge: Labs from last 24 hours 09/12/23 09/12/23 09/12/23 08:42 00:47 00:00 WBC 6.29 5.90 RBC 3.47 L 4.01 Hgb 11.1 L 12.8 Hct 34.6 39.7 MCV 100 99 MCH 32 32 MCHC 32 32 RDW Coeff of Ti 13.1 13.1 Plt Count 238 294 Neut % (Auto) 56.3 51.0 Lymph % (Auto) 29.7 30.8 [place] % (Auto) 7.3 9.2 Eos % (Auto) 6.2 8.1 H Baso % (Auto) 0.5 0.7 Neut # (Auto) 3.54 3.01 Lymph # (Auto) 1.87 1.82 [place] # (Auto) 0.50 0.50 Eos # (Auto) 0.39 0.50 Baso # (Auto) 0.03 0.04 Abs Immat Gran (auto) 0.00 0.01 Imm/Tot Granulo (auto) 0.0 0.2 Sodium 139 141 Potassium 3.5 L 3.8 Chloride 107 104 Carbon Dioxide 27 28 Anion Gap 5 L 9 BUN 15 22 Creatinine 0.7 0.8 Estimated Creat Clear 33.71 35.26 Estimated GFR 86 73 Glucose 100 116 H Lactate 0.9 0.9 Calcium 8.9 9.8 Total Bilirubin 0.4 AST 23 ALT 12 Alkaline Phosphatase 81 C-Reactive Protein < 0.5 L Total Protein 8.1 Albumin 4.8 Lipase 198 Urine Color Yellow Urine Appearance Clear Urine pH 6.5 Ur Specific [place] 1.020 Urine Protein Negative Urine Glucose (UA) Negative Urine Ketones Negative Urine Blood Trace-lysed A Urine Nitrite Negative Urine Bilirubin Negative Urine Urobilinogen 0.2 Ur Leukocyte Esterase Negative Urine RBC 0-2 Urine WBC 0-2 Ur Squamous Epith Cells Few Urine Bacteria None Discharge Plan Discharge Disposition: Home, Self-Care Date of Admission: 09/12/23 02:31 Attending Provider on Discharge: Gabriela Carmona Consulting Providers: Margoth Bagley Primary Care Provider: Ирина Curry Condition: Improved Anticipated Discharge Date/Time: 09/12/23 11:51 Discharge Medications: New prednisone 20 mg Tablet 40 mg PO DAILYWM Qty: 8 0RF Continued trazodone 50 mg tablet 50 mg PO HS amlodipine 5 mg tablet 5 mg PO DAILY montelukast 10 mg tablet 10 mg PO HS hydrochlorothiazide 25 mg tablet 25 mg PO DAILY albuterol sulfate 90 mcg/actuation HFA aerosol inhaler 2 puff inhalation Q6H PRN losartan 100 mg tablet 100 mg PO DAILY fluticasone propionate 50 mcg/actuation spray,suspension 2 spray INTRANASAL DAILY rosuvastatin 10 mg tablet 10 mg PO HS alendronate 70 mg tablet 70 mg PO Q7D Rx Instructions: TUESDAY budesonide 0.5 mg/2 mL suspension for nebulization 0.5 mg inhalation BID ipratropium-albuterol 0.5 mg-3 mg(2.5 mg base)/3 mL solution for nebulization 3 ml INHALATION BID-TID carboxymethylcellulose sodium [Refresh Tears] 0.5 % drops 1 drp ophthalmic (eye) BID PRN acetaminophen [Acetaminophen Extra Strength] 500 mg tablet 1,000 mg PO TID Discharge Orders: Discharge Order (Routine); Ordered 09/12/23 Ordered By: Gabriela Carmona Patient Education: Prednisone (By mouth), COPD (Chronic Obstructive Pulmonary Disease) (GEN), Bowel Obstruction (GEN), Ventral Hernia (GEN) Additional Instructions: Continue to slowly advanced your diet. Outpatient follow-up with your PCP and General surgery. Continue to take prednisone once daily for the next 4 days, using your inhalers and nebulizers as prescribed. Activity Level: Activity as Tolerated Discharge Diet: Regular Follow Up Appointments: Jennifer Fortune MD [Staff Physician] - 09/14/23 1:00 pm ([facility] for post hospital follow-up, small-bowel obstruction, incarcerated ventral hernia. Followed by outpatient General surgery follow-up.) Ирина Curry MD [Primary Care Provider] - None (Post hospital follow-up, small-bowel obstruction, incarcerated ventral hernia. Followed by outpatient General surgery follow-up.) Forms: [employer] Info Instructions
[2023-09-12] MEDS: predniSONE 20 MG TABLET 40 MG PO (12:43)
--- NOTE | 2023-09-12 14:04 | PC.NURSE ---
shift note: pt vss stable. pt had exp wheezing this a.m. pt received neb with improvement in audible wheezing. Pt up indept in room w/o sob. pt denies c.p or pressure. IV dc'd lt AC intact. Reviewed dc instructions and copies sent with pt. Reviewed belongings sheet and items sent with pt at dc.
== END 2023-09-12 13:00 | disposition home or self-care (01) ==
LOC: ED 09-12 01:59 → MEDSURG 09-12 02:31
PROVIDERS: Admitting Provider Internal Medicine; Emergency Provider Family Medicine; PCP Family Medicine; Visit Provider Internal Medicine
DX: K43.6 Other and unspecified ventral hernia with obstruction, without gangrene (principal); K56.601 Complete intestinal obstruction, unspecified as to cause; Z96.659 Presence of unspecified artificial knee joint; K56.609 Unspecified intestinal obstruction, unspecified as to partial versus complete obstruction; I10 Essential (primary) hypertension; J44.9 Chronic obstructive pulmonary disease, unspecified
CPT/HCPCS: 36415; 74177; 80048; 80053; 81001; 81003; 83605; 83690; 85025; 86140; 94640; 99284; 99285; A9270; G0378; J1170; J2405; J7120; J7512; J7626; Q9967

== ENCOUNTER 2023-09-26 08:35 | Day surgery (SDC) | payer MEDICARE, BC, SELFPAY ==
[2023-09-26 09:00] VITALS: BP 150/69; PULSE 84; RESP 16; TEMP 36.9; O2SAT 96; BMI 25.9
[2023-09-26] MEDS: LACTATED RINGERS 1000 ML 1,000 ML 100 ML IV (09:15)
[2023-09-26] MEDS: SODIUM CHLORIDE 0.9 % (FLUSH) 10 ML SYRINGE IVF (09:45)
--- NOTE | 2023-09-26 10:08 | W.PM.H&PU ---
History & Physical Update History & Physical Update H&P Reviewed and patient assessed: No changes noted H&P Updates: Patient completed her burst of steroids and her cough is better and shortness of breath is better.
--- NOTE | 2023-09-26 10:17 | P.GSOP_ITS ---
Operative Note Date of procedure: 09/26/23 Pre-op diagnosis: 1. Supraumbilical/ventral hernia with recent episode of small bowel incarceration. Post-op diagnosis: 1. Supraumbilical/ventral hernia containing preperitoneal fat. Type of Procedure: 1. Open ventral hernia repair with mesh. Indications: 83-year-old female was seen in the hospital after she presented to the emergency room with supraumbilical abdominal pain. The pain started all of a sudden and was severe and not resolving. In the emergency room an abdominal CT was obtaine d that showed an incarcerated supraumbilical hernia containing small intestine. This was reduced in the emergency room. Patient was seen hours after this reduction. Her pain was significantly improved and she was passing gas. On clinical exam her abdomen was not distended, she had tenderness to palpation supraumbilically with no significant supraumbilical bulge palpated. She did not have peritoneal signs. Given patient's clinical history and her CT scan findings, discussion was held about surgical repair of this supraumbilical hernia. The risks of the procedure including infection, bleeding, and injury to intra-abdominal organs, as well as worsening of her COPD and shortness of breath were all discussed with the patient, and she agreed to proceed. Procedure Description: After discussing the risks and benefits of the procedure, the patient signed informed consent.? The operative site was marked and the patient was brought to the operating room and placed on the operating table in supine position.? Care was taken to pad the patient's pressure points.?? The patient was then sedated by anesthesia.?? The operative site was then prepped and draped in the usual sterile fashion.? A time-out was then performed. Local anesthetic was injected at the surgical site 3 cm superior to the umbilicus. Subcutaneous fat was divided with cautery down to the hernia sac. Preperitoneal fat was noted to be incarcerated through the hernia sac. Fascia was cleared of adjacent subcutaneous fat with cautery. The fascia was then grasped with a Lisa clamp. Preperitoneal space was developed with cautery and preperitoneal fat was reduced into the preperitoneal space. The fascial defect was approximately 1.4 cm. Hemostasis achieved with cautery. I then used small Ventralex ST patch and placed it into the preperitoneal space. This was secured in place with interrupted 0-0 Nurolon sutures. The fascia was closed over the mesh with a running 2-0 Vicryl suture. Additional local anesthetic was injected in the surgical site. Subcutaneous fat was then reapproximated with interrupted 2-0 Vicryl sutures. The dermis was reapproximated with interrupted 3-0 Vicryl sutures. The skin was closed with a running 4-0 Monocryl stitch. Steri-Strips were applied over the incision. Sterile dressings were then applied. ? The patient was then woken and transported to the recovery area in stable condition. ? The patient tolerated the procedure well. Findings: 1.4 cm fascial defect repaired with mesh. Implants: Ventralex ST mesh. Anesthesia: MAC and local Surgeon: Margoth Bagley MD Estimated blood loss (mL): 5 Condition: stable Disposition: same day
[2023-09-26] MEDS: BUPIVACAINE 0.25% 30 ML INJECTION (10:28)
--- NOTE | 2023-09-26 10:45 | P.ANES_ITS ---
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
[2023-09-26 11:00] VITALS: BP 119/59; PULSE 69; RESP 16; TEMP 36.3; O2SAT 96
--- NOTE | 2023-09-26 11:01 | W.ANESCHARGE ---
Anesthesia Charges Start Date/Time Anesthesia Start Date: 09/26/23 Anesthesia Start Time: 10:13 Stop Date/Time Anesthesia Stop Date: 09/26/23 Anesthesia Stop Time: 11:03 Summary Extremes of Age - Over 70 or under 1: MDA
[2023-09-26] MEDS: hydrOXYzine pamoate 25 MG CAPSULE PO (11:09)
[2023-09-26 11:15] VITALS: BP 137/66; PULSE 65; RESP 16; O2SAT 98
[2023-09-26 11:30] VITALS: BP 144/63; PULSE 72; RESP 16; O2SAT 98
[2023-09-26 11:45] VITALS: BP 130/70; PULSE 70; RESP 16; O2SAT 98
== END 2023-09-26 12:32 | disposition home or self-care (01) ==
PROVIDERS: PCP Family Medicine; Visit Provider Surgery
PROC: (CPT 49592; principal; 2023-09-26 10:15)
DX: K43.6 Other and unspecified ventral hernia with obstruction, without gangrene (principal)
CPT/HCPCS: 49592; 00750; 00752; 99100; A9270; C1781; J0665; J1100; J2405; J2704; J3010; J7120

== ENCOUNTER 2023-12-02 07:10 | Emergency (ER) | payer MEDICARE, BC, SELFPAY ==
[2023-12-02] VITALS (10 sets, daily range): BP systolic 126–168; BP diastolic 57–103; PULSE 71–79; RESP 24; TEMP 36.4; O2SAT 94–97; BMI 25.2
--- NOTE | 2023-12-02 07:38 | CRLHL7_ITS ---
For Patients: As a result of the Cures Act, medical imaging exams and procedure reports are released immediately into your electronic medical record. You may view this report before your referring provider. If you have questions, please contact your health care provider. INDICATION: COPD. Cough. TECHNIQUE: Chest 2 views. COMPARISON: 10/28/2021. FINDINGS: No pneumothorax or pleural effusion. Mild emphysema. Lungs are otherwise clear. Aortic atherosclerosis. Cardiac and mediastinal contours are otherwise within normal limits. Upper abdomen and osseous structures as imaged show no acute abnormality. Chronic appearing compression fractures of the thoracic spine. IMPRESSION: No evidence of acute cardiopulmonary disease. Dictated by Lyle Reyes MD @ 12/02/2023 9:12:26 AM (Electronically Signed)
--- NOTE | 2023-12-02 07:39 | ED_ITS ---
HPI - General Adult General Chief complaint: Shortness of Breath/Dyspnea Stated complaint: shortness of breath, coughing Time Seen by Provider: 12/02/23 07:39 History of Present Illness HPI narrative: hx copd. c/o really bad coughing, headache, sob. symptoms started 2.5 days ago. states coughing up clear to yellow thick phlegm. hx of this in the past with copd exacerbation 83-year-old woman presenting with daughter to the emergency depart with concern of cough. She suspects COPD exacerbation. Symptoms started little over 2 days ago. She does not identify any particular triggers. Has been doing nebulizations including DuoNebs and budesonide she says. Do not seem to be helping much but she says other people think they do. She has not had a fever. Cough has been somewhat productive. Thick yellow phlegm has been identified. Denies chest pain. Was weaned off last year from steroids. She did have a steroid treatment for a COPD flare earlier in the year. Denies any facial pain or pressure as I note her to sound congested. She does endorse a generalized headache that has been present since she has been coughing. Does not note any particular weight changes. No diagnosis of CHF. No sore throat. Has not been taking any cough medicine otherwise. In mid September of this year was admitted with incarcerated ventral hernia and small-bowel obstruction. Receive surgery for this at this facility. She also around this time I believe is when had last COPD exacerbation and steroid burst. Related Data Home Medications ?Medication ?Instructions ?Recorded ?Confirmed albuterol sulfate 90 mcg/actuation 2 puff inhalation Q6H PRN 09/11/23 09/26/23 aerosol inhaler amlodipine 5 mg tablet 5 mg PO DAILY 09/11/23 09/26/23 fluticasone propionate 50 2 spray intranasal DAILY 09/11/23 09/26/23 mcg/actuation nasal spray,suspension hydrochlorothiazide 25 mg tablet 25 mg PO DAILY 09/11/23 09/26/23 losartan 100 mg tablet 100 mg PO DAILY 09/11/23 09/26/23 montelukast 10 mg tablet 10 mg PO HS 09/11/23 09/26/23 rosuvastatin 10 mg tablet 10 mg PO HS 09/11/23 09/26/23 trazodone 50 mg tablet 50 mg PO HS 09/11/23 09/26/23 acetaminophen 500 mg tablet 1,000 mg PO TID 09/12/23 09/26/23 (Acetaminophen Extra Strength) alendronate 70 mg tablet 70 mg PO Q7D 09/12/23 09/26/23 budesonide 0.5 mg/2 mL suspension 0.5 mg inhalation BID 09/12/23 09/26/23 for nebulization carboxymethylcellulose sodium 0.5 1 drp ophthalmic (eye) BID PRN 09/12/23 09/26/23 % eye drops (Refresh Tears) ipratropium 0.5 mg-albuterol 3 mg 3 ml inhalation BID-TID wheezing 09/12/23 09/26/23 (2.5 mg base)/3 mL nebulization soln Previous Rx's ?Medication ?Instructions ?Recorded prednisone 20 mg tablet 40 mg (2 x 20 mg) PO DAILYWM #8 09/12/23 tabs hydrocodone 5 mg-acetaminophen 325 1 tab PO Q6H PRN pain #25 tabs 09/26/23 mg tablet Allergies Allergy/AdvReac Type Severity Reaction Status Date / Time aspirin AdvReac Verified 09/26/23 09:16 Review of Systems Status of ROS: Reports: 6 or more systems reviewed and unremarkable except as noted in History and below [facility] Medical History Depression ?F32.A - Depression, unspecified (ICD-10) Prediabetes ?R73.03 - Prediabetes (ICD-10) COPD (chronic obstructive pulmonary disease) ?J44.9 - Chronic obstructive pulmonary disease, unspecified (ICD-10) HTN (hypertension) ?I10 - Essential (primary) hypertension (ICD-10) Surgical History History of knee replacement ?Z96.659 - Presence of unspecified artificial knee joint (ICD-10) H/O tubal ligation ?Z98.51 - Tubal ligation status (ICD-10) Hx of tonsillectomy ?Z90.89 - Acquired absence of other organs (ICD-10) S/P hip replacement ?Z96.649 - Presence of unspecified artificial hip joint (ICD-10) Social History What is your current living situation?: I presently have a place to live Problems where you live: no known problems Problems where you live details: N/A In the past 12 months, utilities in danger of being shut off: no In past 12 months, lack of transportation kept you from medical appts, meetings, work, or getting things needed for daily living: no In the past 12 mos, have been you worried that your food would run out before you had money to buy more?: never true In the past 12 mos, the food you bought just didn't last and you didn't have money to buy more?: never true Highest level of school completed/degree received: Associate degree: occupational, technical, vocational program Smoking Status: Former smoker What tobacco products do you use: cigarettes Smoking packs per day: 1 Smoking cigarettes per day: 20.0 Years smoked: 40 Smoking pack-years: 40.00 Smoking quit date/years: >15 years ago Do you use any of these nicotine containing products: None Second hand tobacco smoke exposure: No How often do you have a drink containing alcohol: monthly or less Alcohol type: wine How many standard drinks containing alcohol do you have on a typical day: 1 or 2 How often do you have six or more drinks on one occasion: Never AUDIT-C Alcohol total score: 1 Non-prescribed substance use: denies use Caffeine: Yes How often does anyone, including family, friends and others, physically hurt you : never How often does anyone, including family, friends and others, insult or talk down to you: never How often does anyone, including family, friends and others, threaten you with harm: never How often does anyone, including family, friends and others, scream or curse at you: never Are you using contraception or practicing any form of control: No service: No Exam Narrative: Exam Narrative: Pleasant. Less easily. Coughs frequently but can settle cough to have conversation. Sounds congested the nasopharynx without facial swelling or erythema or tenderness. Lungs with diminished breath sounds generally. Diffuse trace crepitus and diffuse trace end-expiratory wheezes. Oxygenating 96% or so during our conversation. Heart in regular rate and rhythm. Abdomen is soft nontender. Extremities are well perfused without edema. Oropharynx is moist. Trace erythema but without cobblestoning. Neck is supple without lymphadenopathy. No stridor. Const: Vital Signs, click to edit/add: Vital Signs - 24 hr 12/02/23 07:21 Temperature 97.5 F L Pulse Rate [Pulse Oximeter] 72 Respiratory Rate 24 Blood Pressure [Le ft Upper Arm] 168/103 H Pulse Oximetry 96 Oxygen Delivery Me thod Room Air Documenting provider has reviewed patient's vital signs: yes Course Vital Signs Vital signs: Initial Vital Signs Temperature 97.5 F L 12/02/23 07:21 Temperature Source Temporal Artery Scan 12/02/23 07:21 Pulse Rate 72 12/02/23 07:21 Respiratory Rate 24 12/02/23 07:21 Blood Pressure 168/103 H 12/02/23 07:21 Blood Pressure Mean 124 H 12/02/23 07:21 Blood Pressure Position Supine 12/02/23 07:21 Pulse Oximetry 96 12/02/23 07:21 Oxygen Delivery Method Room Air 12/02/23 07:21 Vital Signs Temperature 97.5 F L 12/02/23 07:21 Pulse Rate 72 12/02/23 07:21 Respiratory Rate 24 12/02/23 07:21 Blood Pressure 168/103 H 12/02/23 07:21 Pulse Oximetry 96 12/02/23 07:21 Oxygen Delivery Method Room Air 12/02/23 07:21 Temperature 97.5 F L 12/02/23 07:21 Pulse Rate 72 12/02/23 07:21 Respiratory Rate 24 12/02/23 07:21 Blood Pressure 168/103 H 12/02/23 07:21 Pulse Oximetry 96 12/02/23 07:21 Oxygen Delivery Method Room Air 12/02/23 07:21 Medications Administered Medications: Discontinued Medications Generic Name Dose Route Start Last Admin Trade Name Freq PRN Reason Stop Dose Admin Albuterol/Ipratropium 1 neb 12/02/23 07:45 12/02/23 07:51 Iprat-Albut 0.5-2.5 Mg/3 Ml Neb IH 12/02/23 07:46 1 neb ONCE ONE Administration Medical Decision Making MDM Narrative Medical decision making narrative: This does appear to be COPD exacerbation and consistent with her history as described. Cough might be triggered somewhat by postnasal drip. Certainly pneumonia is in differential pneumothorax as well. Pulmonary embolus I think less likely. Would like to give a DuoNeb as she has not had any nebulizations yet this morning and reassess at that time along with a chest x-ray. Will be giving prednisone here in the emergency department. Apparently tolerates up to 40 mg daily. In consultation with oncoming physician colleague will triple swab as well. Pending imaging and results nebulizations upon handoff at change of shift Did manage to listen to her lungs again following nebulization. Clearly moving more air. Less crepitus and absent wheeze. They also recall that weather changes can exacerbate her COPD as well as having a diagnosis of vocal cord dysfunction. I would say the latter is consistent with initial suspicions that some of the cough seems to be coming from throat trigger somehow. Medical Records Medical records reviewed: Yes I reviewed the patient's medical records Discharge Plan Discharge Clinical Impression: COPD with acute exacerbation Patient Disposition: Home w/ Parent or Adult Condition: Stable Prescriptions: No Action trazodone 50 mg tablet 50 mg PO HS amlodipine 5 mg tablet 5 mg PO DAILY montelukast 10 mg tablet 10 mg PO HS hydrochlorothiazide 25 mg tablet 25 mg PO DAILY albuterol sulfate 90 mcg/actuation HFA aerosol inhaler 2 puff inhalation Q6H PRN losartan 100 mg tablet 100 mg PO DAILY fluticasone propionate 50 mcg/actuation spray,suspension 2 spray INTRANASAL DAILY rosuvastatin 10 mg tablet 10 mg PO HS alendronate 70 mg tablet 70 mg PO Q7D Rx Instructions: TUESDAY budesonide 0.5 mg/2 mL suspension for nebulization 0.5 mg inhalation BID ipratropium-albuterol 0.5 mg-3 mg(2.5 mg base)/3 mL solution for nebulization 3 ml INHALATION BID-TID carboxymethylcellulose sodium [Refresh Tears] 0.5 % drops 1 drp ophthalmic (eye) BID PRN acetaminophen [Acetaminophen Extra Strength] 500 mg tablet 1,000 mg PO TID prednisone 20 mg Tablet 40 mg PO DAILYWM Qty: 8 0RF hydrocodone-acetaminophen 5-325 mg tablet 1 tab PO Q6H PRN (Reason: pain) Qty: 25 0RF Follow Up/Referrals: Ирина Curry MD [Primary Care Provider] - Stand Alone Forms: [employer] Info Instructions
[2023-12-02] MEDS: IPRAT-ALBUT 0.5-2.5 MG/3 ML NEB 1 NEB IH (07:51)
[2023-12-02] MEDS: predniSONE 20 MG TABLET 40 MG PO (08:21)
[2023-12-02] MEDS: ACETAMINOPHEN 500 MG TABLET 1000 MG PO (08:21)
[2023-12-02 08:51] LABS: PCR FLU A Negative PCR FLU A (Negative); PCR FLU B Negative PCR FLU B (Negative); PCR RSV Negative PCR RSV (Negative); SARS PCR* Negative SARS-CoV-2 (Negative)
== END 2023-12-02 11:12 | disposition home or self-care (01) ==
PROVIDERS: Emergency Provider Family Medicine; PCP Family Medicine
DX: J44.1 Chronic obstructive pulmonary disease with (acute) exacerbation (principal)
CPT/HCPCS: 71046; 87631; 94640; 99284; A9270; J7512

== ENCOUNTER 2024-05-04 10:30 | Emergency (ER) | payer MEDICARE, BC, SELFPAY ==
[2024-05-04 10:35] VITALS: BP 188/77; PULSE 89; RESP 18; TEMP 36.9; O2SAT 97; BMI 25.6
--- NOTE | 2024-05-04 10:42 | CRLHL7_ITS ---
For Patients: As a result of the Cures Act, medical imaging exams and procedure reports are released immediately into your electronic medical record. You may view this report before your referring provider. If you have questions, please contact your health care provider. INDICATION: : Cough COMPARISON: Chest radiograph on October 24, 2021 and March 12, 2012 TECHNIQUE: Two view(s) of the chest FINDINGS/IMPRESSION: The cardiomediastinal silhouette and pulmonary vasculature are unremarkable. Questionable faint, small opacities seen adjacent to the left cardiac border, may represent an acute infectious/inflammatory process versus atelectasis/scarring. Otherwise, the remaining lungs are clear with no pleural effusion or pneumothorax. No displaced fractures. Anterior wedging of one of the upper to mid thoracic vertebral bodies. Degenerative changes of the shoulders and spine. Dictated by Fredis Ward MD @ 05/04/2024 11:12:04 AM (Electronically Signed)
--- NOTE | 2024-05-04 10:49 | ED.GENADULT ---
HPI - General Adult General Date Seen: 05/04/24 Chief complaint: Cough Stated complaint: Trouble breathing Time Seen by Provider: 05/04/24 10:49 History of Present Illness HPI narrative: 83-year-old female with history of COPD, high blood pressure, history of ventral hernia with small-bowel obstruction She has been generally healthy over recent months and weeks. At about midnight last night she started having cough and shortness of breath and tightness in her chest. It has been persistent since then. She did use her at-home nebulizer but without much improvement. She came to the ER this morning with her son. She has persistent shortness of breath and wheezing. She also has some tightness in her throat and a slightly hoarse voice. Her son notes that when she gets a COPD exacerbation she often gets anxious and then her voice box will clench up leading to the hoarseness. She is feeling some tightness in her chest but no pain. No pleuritic pain. No hemoptysis. No fever. No known sick exposures. No recent travel. No swelling in her legs. She is not sure what made her symptoms began last night. Possibly was the change in the weather. Symptoms are similar to, but not as bad as, when she was here in the ER last spring. Per medical record her most recent visit to the [place] [facility] was last November, 6 months ago. She had a normal chest x-ray, COVID and influenza swabs were negative. She was treated with nebs. Improved in the ER. Discharged with a 5 day burst of prednisone. Related Data Home Medications ?Medication ?Instructions ?Recorded ?Confirmed albuterol sulfate 90 mcg/actuation 2 puff inhalation Q6H PRN 09/11/23 09/26/23 aerosol inhaler amlodipine 5 mg tablet 5 mg PO DAILY 09/11/23 09/26/23 fluticasone propionate 50 2 spray intranasal DAILY 09/11/23 09/26/23 mcg/actuation nasal spray,suspension hydrochlorothiazide 25 mg tablet 25 mg PO DAILY 09/11/23 09/26/23 losartan 100 mg tablet 100 mg PO DAILY 09/11/23 09/26/23 montelukast 10 mg tablet 10 mg PO HS 09/11/23 09/26/23 rosuvastatin 10 mg tablet 10 mg PO HS 09/11/23 09/26/23 trazodone 50 mg tablet 50 mg PO HS 09/11/23 09/26/23 acetaminophen 500 mg tablet 1,000 mg PO TID 09/12/23 09/26/23 (Acetaminophen Extra Strength) alendronate 70 mg tablet 70 mg PO Q7D 09/12/23 09/26/23 budesonide 0.5 mg/2 mL suspension 0.5 mg inhalation BID 09/12/23 09/26/23 for nebulization carboxymethylcellulose sodium 0.5 1 drp ophthalmic (eye) BID PRN 09/12/23 09/26/23 % eye drops (Refresh Tears) ipratropium 0.5 mg-albuterol 3 mg 3 ml inhalation BID-TID wheezing 09/12/23 09/26/23 (2.5 mg base)/3 mL nebulization soln Previous Rx's ?Medication ?Instructions ?Recorded prednisone 20 mg tablet 40 mg (2 x 20 mg) PO DAILYWM #8 09/12/23 tabs hydrocodone 5 mg-acetaminophen 325 1 tab PO Q6H PRN pain #25 tabs 09/26/23 mg tablet prednisone 20 mg tablet 40 mg (2 x 20 mg) PO DAILY #8 tabs 12/02/23 albuterol sulfate 2.5 mg/3 mL 2.5 mg (3 mL) inhalation Q4H PRN 05/04/24 (0.083 %) solution for nebulization #75 mL benzonatate 100 mg capsule 100 mg PO TID PRN cough #14 caps 05/04/24 doxycycline hyclate 100 mg capsule 100 mg PO BID #14 caps 05/04/24 prednisone 20 mg tablet 40 mg (2 x 20 mg) PO DAILY #10 tabs 05/04/24 Allergies Allergy/AdvReac Type Severity Reaction Status Date / Time aspirin AdvReac Verified 09/26/23 09:16 [facility] Medical History Depression ?F32.A - Depression, unspecified (ICD-10) Prediabetes ?R73.03 - Prediabetes (ICD-10) COPD (chronic obstructive pulmonary disease) ?J44.9 - Chronic obstructive pulmonary disease, unspecified (ICD-10) HTN (hypertension) ?I10 - Essential (primary) hypertension (ICD-10) Surgical History History of knee replacement ?Z96.659 - Presence of unspecified artificial knee joint (ICD-10) H/O tubal ligation ?Z98.51 - Tubal ligation status (ICD-10) Hx of tonsillectomy ?Z90.89 - Acquired absence of other organs (ICD-10) S/P hip replacement ?Z96.649 - Presence of unspecified artificial hip joint (ICD-10) Social History What is your current living situation?: I presently have a place to live Problems where you live: no known problems Problems where you live details: N/A In the past 12 months, utilities in danger of being shut off: no In past 12 months, lack of transportation kept you from medical appts, meetings, work, or getting things needed for daily living: no In the past 12 mos, have been you worried that your food would run out before you had money to buy more?: never true In the past 12 mos, the food you bought just didn't last and you didn't have money to buy more?: never true Highest level of school completed/degree received: Associate degree: occupational, technical, vocational program Smoking Status: Former smoker What tobacco products do you use: cigarettes Smoking packs per day: 1 Smoking cigarettes per day: 20.0 Years smoked: 40 Smoking pack-years: 40.00 Smoking quit date/years: >15 years ago Do you use any of these nicotine containing products: None Second hand tobacco smoke exposure: No How often do you have a drink containing alcohol: monthly or less Alcohol type: wine How many standard drinks containing alcohol do you have on a typical day: 1 or 2 How often do you have six or more drinks on one occasion: Never AUDIT-C Alcohol total score: 1 Non-prescribed substance use: denies use Caffeine: Yes How often does anyone, including family, friends and others, physically hurt you: never How often does anyone, including family, friends and others, insult or talk down to you: never How often does anyone, including family, friends and others, threaten you with harm: never How often does anyone, including family, friends and others, scream or curse at you: never Are you using contraception or practicing any form of control: No service: No Exam Narrative: Exam Narrative: Constitutional: Appears well-developed and well-nourished. Alert. Conversant. Non toxic. HENT: Head: Atraumatic. Nose: Nose normal. Mouth/Throat: Oral mucosa is clear and moist. no trismus. Pharynx normal. Tonsils symmetric. No tonsillar enlargement, erythema, or exudate. Eyes: Conjunctivae normal. EOM normal. Pupils equal, round, and reactive to light. No scleral icterus. Neck: Normal range of motion. Neck supple. No tracheal deviation present. No stridor. No swelling. Trachea midline. She does have a slightly hoarse voice, which her son notes is similar to previous episodes like this. Cardiovascular: Normal rate, regular rhythm. No gallop. No friction rub. No murmur heard. Symmetric radial artery pulses Pulmonary/Chest: Effort normal. No stridor. No respiratory distress. Bilateral inspiratory and expiratory wheezes. No rales. No rhonchi . No tenderness. Abdominal: Soft. No distension. No mass. No tenderness. No rebound. No guarding. Musculoskeletal: RUE: Normal range of motion. No tenderness. No deformity LUE: Normal range of motion. No tenderness. No deformity RLE: Normal range of motion. No edema. No tenderness. No deformity LLE: Normal range of motion. No edema. No tenderness. No deformity Neurological: Alert and oriented to person, place, and time. Normal strength. CN II-VII intact. No sensory deficit. GCS eye subscore is 4. GCS verbal subscore is 5. GCS motor subscore is 6. Normal coordination Skin: Skin is warm and dry. No rash noted. No pallor. Normal capillary refill. Psychiatric: Normal mood. Normal affect. Const: Vital Signs, click to edit/add: Vital Signs - 24 hr 05/04/24 10:35 05/04/24 13:03 Temperature 98.5 F Pulse Rate [Right Pulse Oximeter] 89 77 Respiratory Rate 18 16 Blood Pressure [Ri ght Upper Arm] 188/77 H 164/80 H Pulse Oximetry 97 95 Oxygen Delivery Me thod Room Air Room Air Course Course ED Course: Recheck-lung sounds much improved after neb. Work of breathing much improved. Patient feeling better. She is able ambulate in the hallway to the bathroom and back with no trouble. Discussed test results with the patient and her son. They are agreeable to the plan for discharge. Vital Signs Vital signs: Initial Vital Signs Temperature 98.5 F 05/04/24 10:35 Temperature Source Temporal Artery Scan 05/04/24 10:35 Pulse Rate 89 05/04/24 10:35 Respiratory Rate 18 05/04/24 10:35 Blood Pressure 188/77 H 05/04/24 10:35 Blood Pressure Mean 114 H 05/04/24 10:35 Blood Pressure Position Sitting 05/04/24 10:35 Pulse Oximetry 97 05/04/24 10:35 Oxygen Delivery Method Room Air 05/04/24 10:35 Vital Signs Temperature 98.5 F 05/04/24 10:35 Pulse Rate 89 05/04/24 10:35 Respiratory Rate 18 05/04/24 10:35 Blood Pressure 188/77 H 05/04/24 10:35 Pulse Oximetry 97 05/04/24 10:35 Oxygen Delivery Method Room Air 05/04/24 10:35 Temperature 98.5 F 05/04/24 10:35 Pulse Rate 77 05/04/24 13:03 Respiratory Rate 16 05/04/24 13:03 Blood Pressure 164/80 H 05/04/24 13:03 Pulse Oximetry 95 05/04/24 13:03 Oxygen Delivery Method Room Air 05/04/24 13:03 Medications Administered Medications: Discontinued Medications Generic Name Dose Route Start Last Admin Trade Name Freq PRN Reason Stop Dose Admin Acetaminophen 1,000 mg 05/04/24 11:51 05/04/24 12:10 Acetaminophen 500 Mg Tablet PO 05/04/24 11:52 1,000 mg ONCE ONE Administration Albuterol/Ipratropium 1 neb 05/04/24 11:04 05/04/24 11:32 Iprat-Albut 0.5-2.5 Mg/3 Ml Neb IH 05/04/24 11:05 1 neb ONCE ONE Administration Prednisone 40 mg 05/04/24 11:04 05/04/24 11:32 Prednisone 20 Mg Tablet PO 05/04/24 11:05 40 mg ONCE ONE Administration Medical Decision Making MDM Narrative Medical decision making narrative: This patient presents for evaluation of shortness of breath. She presented on the overnight shift with wheezing and receive nebs. Signs and symptoms are consistent with COPD exacerbation. A broad differential was considered including asthma, pneumonia, bronchitis, pneumothorax, viral induced wheezing, allergic phenomena, among others. My read of chest x-ray is normal but per Radiology Chest x-ray does show a questionable left lower lobe infiltrate suggesting a possible early pneumonia. Will cover her with a course of antibiotics (doxycycline) for possible community-acquired pneumonia. PCR is negative for influenza and coronavirus. At this point clinical presentation is very consistent with wheezing and bronchospasm from COPD exacerbation and possible pneumonia. I do not think she needs workup with EKG, troponin, D-dimer, or other test to look for ACS, CHF, PE. The patient feels and sounds improved after interventions here in ED. No indication for hospitalization at this time including no hypoxia, no marked increase in respiratory rate, and there are minimal to no retractions. Supportive outpatient management is indicated, medications for discharge noted above. She already has adequate supplies of budesonide and albuterol inhalers. Refill for albuterol nebs. Will put her on a 5 day burst of prednisone. First dose given this morning while in the ER. Prescription for prednisone 40 mg daily for 4 more days sent to her pharmacy. Close followup with primary care physician. Return if increased wheezing, progressive shortness of breath, develops fever greater than 102. Questions answered and patient comfortable with plan Lab Data Labs: Lab Results 05/04/24 Range/Units Unknown SARS-CoV-2 (PCR) Negative SARS-CoV-2 (Negative) Influenza Type A (PCR) Negative PCR FLU A (Negative) Influenza Type B (PCR) Negative PCR FLU B (Negative) Imaging Data Chest x-ray: Attestation: I have reviewed the pertinent imaging results. Radiologist's impression: FINDINGS/IMPRESSION: The cardiomediastinal silhouette and pulmonary vasculature are unremarkable. Questionable faint, small opacities seen adjacent to the left cardiac border, may represent an acute infectious/inflammatory process versus atelectasis/scarring. Otherwise, the remaining lungs are clear with no pleural effusion or pneumothorax. Discharge Plan Discharge Clinical Impression: Pneumonia, Acute exacerbation of chronic obstructive pulmonary disease Instructions: COPD (Chronic Obstructive Pulmonary Disease) (ED), Pneumonia (ED), Wheezing (ED) Additional Instructions: As we discussed, please come back to the ER right away if you have worsening symptoms, especially if you have worsening trouble breathing, high fever, bloody cough, worsening chest pain, or weakness. Please follow-up with your regular doctor for recheck within the next 1-2 weeks. To help treat your shortness of breath use your nebulizer every 4 hours as needed for the next couple of days. Continue on your budesonide twice daily. Add the prednisone pills with 1 dose per day for the next 5 days We will also put you on an antibiotic to cover for a pneumonia in your left lower lung. Prescriptions: New albuterol sulfate 2.5 mg /3 mL (0.083 %) solution for nebulization 2.5 mg inhalation Q4H PRNQty: 75 0RF prednisone 20 mg tablet 40 mg PO DAILY Qty: 10 0RF doxycycline hyclate 100 mg capsule 100 mg PO BID Qty: 14 0RF benzonatate 100 mg capsule 100 mg PO TID PRN (Reason: cough) Qty: 14 0RF No Action prednisone 20 mg tablet 40 mg PO DAILY Qty: 8 0RF trazodone 50 mg tablet 50 mg PO HS amlodipine 5 mg tablet 5 mg PO DAILY montelukast 10 mg tablet 10 mg PO HS hydrochlorothiazide 25 mg tablet 25 mg PO DAILY albuterol sulfate 90 mcg/actuation HFA aerosol inhaler 2 puff inhalation Q6H PRN losartan 100 mg tablet 100 mg PO DAILY fluticasone propionate 50 mcg/actuation spray,suspension 2 spray INTRANASAL DAILY rosuvastatin 10 mg tablet 10 mg PO HS alendronate 70 mg tablet 70 mg PO Q7D Rx Instructions: TUESDAY budesonide 0.5 mg/2 mL suspension for nebulization 0.5 mg inhalation BID ipratropium-albuterol 0.5 mg-3 mg(2.5 mg base)/3 mL solution for nebulization 3 ml INHALATION BID-TID carboxymethylcellulose sodium [Refresh Tears] 0.5 % drops 1 drp ophthalmic (eye) BID PRN acetaminophen [Acetaminophen Extra Strength] 500 mg tablet 1,000 mg PO TID prednisone 20 mg Tablet 40 mg PO DAILYWM Qty: 8 0RF hydrocodone-acetaminophen 5-325 mg tablet 1 tab PO Q6H PRN (Reason: pain) Qty: 25 0RF Follow Up/Referrals: Ирина Curry MD [Primary Care Provider] - Stand Alone Forms: [employer] Info Instructions
[2024-05-04] MEDS: predniSONE 20 MG TABLET 40 MG PO (11:32)
[2024-05-04] MEDS: IPRAT-ALBUT 0.5-2.5 MG/3 ML NEB 1 NEB IH (11:32)
[2024-05-04] MEDS: ACETAMINOPHEN 500 MG TABLET 1000 MG PO (12:10)
[2024-05-04 12:21] LABS: PCR FLU A Negative PCR FLU A (Negative); PCR FLU B Negative PCR FLU B (Negative); SARS PCR* Negative SARS-CoV-2 (Negative)
[2024-05-04 13:03] VITALS: BP 164/80; PULSE 77; RESP 16; O2SAT 95
== END 2024-05-04 13:04 | disposition home or self-care (01) ==
PROVIDERS: Emergency Provider Emergency Medicine; PCP Family Medicine
DX: J18.9 Pneumonia, unspecified organism (principal); J44.1 Chronic obstructive pulmonary disease with (acute) exacerbation
CPT/HCPCS: 71046; 87631; 99283; 99284; A9270; J7512